=== PATIENT | female | born 1935 | race Caucasian/White ===

== ENCOUNTER 2019-06-23 14:03 | Outpatient (CLI) | payer MEDICARE ==
--- NOTE | 2019-06-23 14:58 | CT ---
CT HEAD WITHOUT CONTRAST: 06/23/2019 HISTORY: Fall. Hypertension. Dizziness. Right subdural hematoma in the frontal region. COMPARISON: None. TECHNIQUE: Axial CT imaging at 4.5 mm intervals from the vertex through the skull base without contrast. FINDINGS: The imaged paranasal sinuses and mastoid air cells are well aerated. No displaced calvarial fracture. There is mild prominence of the subdural space near the vertex in the right frontal parietal region, which is of mixed attenuation, suggesting subdural hematoma, consistent with the provided history. Mi ld hyperdensity suggesting acute hemorrhage is seen in this region, measuring up to approximately 2-3 mm in transverse dimension, best seen in the right parietal region on axial image 24. Comparison to prior imaging would be beneficial. No comparison imaging is available. No intraaxial hemorrhage. No s ignificant midline shift or mass effect. IMPRESSION: Small right-sided subdural hematoma with frontal and parietal components, acute component measuring u p to 2-3 mm in transverse dimension. Continued followup suggested. POS: ALEX
== END 2019-06-23 14:04 | disposition home or self-care (01) ==
LOC: TBSIIMAG 14:03
PROVIDERS: ATTEND Surgery
DX: S06.5X9A Traumatic subdural hemorrhage with loss of consciousness of unspecified duration, initial encounter (principal)
CPT/HCPCS: 70450